=== PATIENT | female | born 1965 | race Two or more races ===

== ENCOUNTER 2018-01-29 00:29 | Emergency (ER) | payer OTHER ==
[~2018-01-29] VITALS: Ht 162.6 cm; Wt 89.8 kg
[2018-01-29] MEDS ORDERED: KETO10TA2 PO (03:42)
[2018-01-29] MEDS ORDERED: NORFLEX100MG PO (03:42)
== END 2018-01-29 03:56 | disposition home or self-care (01) ==
LOC: ER 00:29
DX: S39.012A Strain of muscle, fascia and tendon of lower back, initial encounter (principal); X50.3XXA Overexertion from repetitive movements, initial encounter; Y93.F2 Activity, caregiving, lifting; Y92.018 Other place in single-family (private) house as the place of occurrence of the external cause; Y99.8 Other external cause status

== ENCOUNTER 2018-03-20 09:56 | Outpatient (CLI) | payer OTHER ==
[~2018-03-20 09:56] MED LIST: KETO10TA2 PO; LODINE XL500 MG PO; NORFLEX100MG PO
== END 2018-03-20 10:02 | disposition home or self-care (01) ==
LOC: MRI 09:56
DX: S39.012A Strain of muscle, fascia and tendon of lower back, initial encounter (principal)
CPT/HCPCS: 72148

== ENCOUNTER 2018-04-06 08:36 | Outpatient (CLI) | payer OTHER | END 2018-04-06 08:44 | disposition home or self-care (01) | LOC: LAB 08:36 | DX: R94.5 Abnormal results of liver function studies (principal) ==

== ENCOUNTER 2018-05-23 14:07 | Outpatient (CLI) | payer OTHER | END 2018-05-23 14:09 | disposition home or self-care (01) | LOC: RAD 14:07 | DX: M76.62 Achilles tendinitis, left leg (principal); M72.2 Plantar fascial fibromatosis; M77.32 Calcaneal spur, left foot ==

== ENCOUNTER → 2018-08-13 | Outpatient (CLI) | payer OTHER | END | disposition home or self-care (01) | LOC: LAB 07:51 | DX: E03.8 Other specified hypothyroidism (principal); E11.9 Type 2 diabetes mellitus without complications; E78.00 Pure hypercholesterolemia, unspecified; M33.22 Polymyositis with myopathy; R76.0 Raised antibody titer; R74.0 Nonspecific elevation of levels of transaminase and lactic acid dehydrogenase [LDH]; M06.09 Rheumatoid arthritis without rheumatoid factor, multiple sites ==

== ENCOUNTER 2020-04-03 11:48 | Emergency (ER) | payer OTHER ==
[~2020-04-03] VITALS: Ht 162.6 cm; Wt 87.5 kg
[2020-04-03] MEDS ORDERED: METHOTREXA25 MG/1 M5 (12:10)
[2020-04-03] MEDS ORDERED: COSENTYX (150 MG/1 M (12:11)
[2020-04-03] MEDS ORDERED: ORPHENADRINE C100 MG PO (16:54)
[2020-04-03] MEDS ORDERED: PEPCID AC20 MG PO (16:54)
[2020-04-03] MEDS ORDERED: NAPROXEN375 MG PO (16:54)
== END 2020-04-03 17:11 | disposition home or self-care (01) ==
LOC: ER 11:48
DX: R10.31 Right lower quadrant pain (principal); Z03.818 Encounter for observation for suspected exposure to other biological agents ruled out

== ENCOUNTER 2021-07-22 19:05 | Emergency (ER) | payer OTHER ==
[~2021-07-22] VITALS: Ht 165.1 cm; Wt 97.5 kg
[~2021-07-22 19:05] MED LIST changes: +COSENTYX (150 MG/1 M; +METHOTREXA25 MG/1 M5; +NAPROXEN375 MG PO; +ORPHENADRINE C100 MG PO; +PEPCID AC20 MG PO
[2021-07-22] MEDS ORDERED: [UNRECOGNIZED DRUG - OTHER] IX (19:38)
== END 2021-07-22 22:13 | disposition left against medical advice (07) ==
LOC: ER 19:05
DX: Z53.21 Procedure and treatment not carried out due to patient leaving prior to being seen by health care provider (principal)

== ENCOUNTER 2022-05-29 11:28 | Emergency (ER) | payer OTHER ==
[~2022-05-29] VITALS: Ht 160 cm; Wt 91.2 kg
[~2022-05-29 11:28] MED LIST changes: +[UNRECOGNIZED DRUG - OTHER] IX
[2022-05-29] MEDS ORDERED: DICLOFENAC POTA50 MG PO (12:05)
[2022-05-29] MEDS ORDERED: ZANAFLEX4 MG PO (13:41)
[2022-05-29] MEDS ORDERED: NAPROXEN500 MG PO (13:41)
== END 2022-05-29 14:49 | disposition home or self-care (01) ==
LOC: ER 11:28
DX: M51.17 Intervertebral disc disorders with radiculopathy, lumbosacral region (principal)